=== PATIENT | female | born 1930 | race Caucasian/White ===

== ENCOUNTER 2017-01-29 12:32 | Emergency (ER) | payer MEDICARE, OTHER ==
[2013-10-11 12:21] VITALS: BMI 22.4
[~2017-01-29 12:32] MED LIST: BAYER CHEWABLE81 MG PO; BETIMOL15 ML EACH EYE; CALCIUM 500 + D1 TAB PO; CATAPRES0.1 MG PO; GEMFIBROZIL600 MG PO; GLIPIZIDE10 MG PO; GLUCOTROL 5 MG T5 MG PO; HYDRALAZINE HCL25 MG PO; MAG-OX 400 MG400 MG PO; MIDAMOR5 MG PO; MULTI-DAY VITAM1 TAB PO; PRAVACHOL40 MG PO; SYNTHROID88 MCG PO; VASOTEC20 MG PO; VITAMIN E200 UNI1 PO; XALATAN 0.0052.5 ML EACH EYE; XANAX0.25 MG PO
== END 2017-01-29 13:20 | disposition home or self-care (01) ==
LOC: D.ER 12:32
DX: J01.90 Acute sinusitis, unspecified (principal); J06.9 Acute upper respiratory infection, unspecified; I10 Essential (primary) hypertension; E11.9 Type 2 diabetes mellitus without complications; E07.9 Disorder of thyroid, unspecified

== ENCOUNTER 2017-04-24 12:07 | Emergency (ER) | payer MEDICARE, OTHER ==
[2013-10-11 12:21] VITALS: BMI 22.4
[2017-04-24 12:49] LABS: BASOPHILS 0.4 % (0-2); EOSINOPHILS 1.2 % (0-7); HEMATOCRIT 36.3 % (36.0-48.0); HEMOGLOBIN 12.1 g/dL (12-16); IMMATURE GRANULOCYTES 0.4 % (0-5); LYMPHOCYTES 11.8 % (15-50); MCHC 33.3 g/dL (31.0-37.0); MCV 93.1 fL (80.0-100.0); MEAN PLATELET VOLUME 9.3 fL (7.4-10.4); MONOCYTES 6.9 % (2-11); NEUTROPHILS 79.3 % (40-80); PLATELET COUNT 353 10x3/uL (130-400); RDW 12.4 % (11.5-14.5); WBC 11.2 10x3/uL (4.8-10.8)
[2017-04-24 13:01] LABS: ALBUMIN 4.1 g/dL (3.4-5.0); ANION GAP 17.1 mmol/L (8-16); BILIRUBIN - TOTAL 0.3 mg/dL (0.2-1.3); CALCIUM 9.5 mg/dL (8.5-10.1); CARBON DIOXIDE 23.5 mmol/L (21.0-32.0); CREATININE - SERUM 1.4 mg/dL (0.6-1.3); POTASSIUM - SERUM 5.6 mmol/L (3.5-5.1); PROTEIN - SERUM 7.9 g/dL (6.4-8.2)
[2017-04-24 18:10] LABS: APPEARANCE CLEAR (CLEAR); BILIRUBIN NEGATIVE (NEGATIVE); COLOR YELLOW (YELLOW); GLUCOSE NEGATIVE (NEGATIVE); KETONE NEGATIVE (NEGATIVE); NITRITE NEGATIVE (NEGATIVE); PH 6.5 (5.0-6.0); PROTEIN NEGATIVE (NEGATIVE); UROBILINOGEN NORMAL (NORMAL)
[2017-04-24 18:12] LABS: WHITE CELLS - URINE OCC /hpf (0-5)
[2017-04-24 18:13] LABS: RED CELLS - URINE OCC /hpf (0-5)
== END 2017-04-24 18:59 ==
LOC: D.ER 12:07
PROVIDERS: Emergency Medicine
DX: R42 Dizziness and giddiness (principal)

== ENCOUNTER → 2017-05-01 23:40 | Emergency (ER) | payer MEDICARE, OTHER ==
[2013-10-11 12:21] VITALS: BMI 22.4
[2017-05-02 00:38] LABS: BASOPHILS 0.5 % (0-2); EOSINOPHILS 6.5 % (0-7); HEMATOCRIT 33.4 % (36.0-48.0); HEMOGLOBIN 11.4 g/dL (12-16); IMMATURE GRANULOCYTES 0.5 % (0-5); LYMPHOCYTES 30.5 % (15-50); MCH 31.6 pg (26.0-34.0); MCHC 34.1 g/dL (31.0-37.0); MCV 92.5 fL (80.0-100.0); MEAN PLATELET VOLUME 9.1 fL (7.4-10.4); PLATELET COUNT 300 10x3/uL (130-400); RBC 3.61 10x6/uL (4.00-5.40); RDW 12.4 % (11.5-14.5); WBC 8.6 10x3/uL (4.8-10.8)
[2017-05-02 00:51] LABS: ALBUMIN 3.6 g/dL (3.4-5.0); ANION GAP 12.8 mmol/L (8-16); BILIRUBIN - TOTAL 0.24 mg/dL (0.2-1.3); CALCIUM 8.9 mg/dL (8.5-10.1); CARBON DIOXIDE 23.5 mmol/L (21.0-32.0); CREATININE - SERUM 0.9 mg/dL (0.6-1.3); POTASSIUM - SERUM 4.3 mmol/L (3.5-5.1); PROTEIN - SERUM 6.9 g/dL (6.4-8.2)
== END ==
LOC: D.ER 23:40
PROVIDERS: Physician Assistant Medical
DX: I10 Essential (primary) hypertension (principal); E11.9 Type 2 diabetes mellitus without complications; F17.200 Nicotine dependence, unspecified, uncomplicated

== ENCOUNTER 2018-08-19 16:25 | Inpatient (IN) | payer MEDICARE, BC ==
[~2018-08-19] VITALS: Ht 152.4 cm; Wt 51.3 kg
[2018-08-19 17:17] LABS: BASOPHILS 0.1 % (0-2); EOSINOPHILS 1.2 % (0-7); HEMATOCRIT 33.8 % (36.0-48.0); HEMOGLOBIN 12.2 g/dL (12-16); IMMATURE GRANULOCYTES 0.8 % (0-5); LYMPHOCYTES 19.7 % (15-50); MCH 30.8 pg (26.0-34.0); MCHC 36.1 g/dL (31.0-37.0); MCV 85.4 fL (80.0-100.0); MEAN PLATELET VOLUME 8.5 fL (7.4-10.4); MONOCYTES 7.4 % (2-11); NEUTROPHILS 70.8 % (40-80); PLATELET COUNT 443 10x3/uL (130-400); RBC 3.96 10x6/uL (4.00-5.40); RDW 12.1 % (11.5-14.5); WBC 11.2 10x3/uL (4.8-10.8)
[2018-08-19 17:39] LABS: ALBUMIN 3.7 g/dL (3.4-5.0); ALKALINE PHOSPHATASE 37 U/L (46-116); ALT (SGPT) 23 U/L (10-68); BILIRUBIN - TOTAL 0.36 mg/dL (0.2-1.3); CALCIUM 8.8 mg/dL (8.5-10.1); CARBON DIOXIDE 20.6 mmol/L (21.0-32.0); CKMB 1.8 U/L (0.0-3.6); CREATINE KINASE 87 UL (21-215); CREATININE - SERUM 1.3 mg/dL (0.6-1.3); MAGNESIUM - SERUM 1.9 mg/dL (1.8-2.4); POTASSIUM - SERUM 4.5 mmol/L (3.5-5.1); PROTEIN - SERUM 7.1 g/dL (6.4-8.2); THYROID STIMULATING HORMONE 0.45 uIU/mL (0.36-3.74); TROPONIN-I 0.032 ng/mL (0.000-0.060); UREA NITROGEN 21 mg/dL (7-18); eGFR NON AFRICAN AMERICAN 41 mL/min (90-120)
[2018-08-19 17:40] LABS: CALC OSMOLALITY 234 mosm/kg (275-300); GLUCOSE 79 mg/dL (74-106)
[2018-08-19 17:42] LABS: CHLORIDE - SERUM 82 mmol/L (98-107); SODIUM 115 mmol/L (136-145)
[2018-08-19 18:02] LABS: APPEARANCE CLEAR (CLEAR); BILIRUBIN NEGATIVE (NEGATIVE); COLOR YELLOW (YELLOW); GLUCOSE NEGATIVE (NEGATIVE); KETONE NEGATIVE (NEGATIVE); NITRITE NEGATIVE (NEGATIVE); PROTEIN NEGATIVE (NEGATIVE); UROBILINOGEN NORMAL (NORMAL)
--- NOTE | 2018-08-19 18:45 | NUR ---
PROVIDED PT WITH FOOD TRAY
--- NOTE | 2018-08-19 19:15 | NUR ---
PT SITTING UP ON BED EATING SANDWICH. PT FAMILY AT BEDSIDE.
--- NOTE | 2018-08-19 20:30 | NUR ---
RECIEVED TO ROOM FROM ER, ALERT AND ORIENTIATED, REPORTS GENERALIZED WEAKNESS, IV FLUID OF 3%NS INFUSING AT 50ML/HR, TELEMENTRY PLACED, DENIES PAIN, ORIENTIATED TO ROMM CALL LIGHT IN REACH, SEE ASSESSMENT
[2018-08-19] MEDS ORDERED: PROTONIX20 MG PO (21:07)
[2018-08-19] MEDS ORDERED: LEXAPRO5 MG PO (21:08)
[2018-08-19] MEDS ORDERED: METAMUCIL SUGAR1 PKT PO (21:08)
[2018-08-19] MEDS ORDERED: GABAPENTIN100 MG PO (21:09)
[2018-08-19] MEDS ORDERED: GLIMEPIRIDE4 MG PO (21:10)
--- NOTE | 2018-08-19 21:30 | NUR ---
BS 69, ENCOURAGED TO TRY TO EAT SOMETHING, STATES WILL TRY, EATING PEANUT BUTTER CRACKERS AND MILK, WILL MONITOR SUGAR
[2018-08-19 23:09] VITALS: BP 112/52; BMI 22.1
--- NOTE | 2018-08-19 23:38 | NUR ---
DAUGHTERS HERE, STATES PT IS IN PROCESS OF MOVING TO [place] TO A ASSISTED LIVING FACILITY CLOSE TO DAUGHTER, AND HAS BEEN STRESSED ABOUT LEAVING HER HOME HERE, INSTRUCTED DAUGHTERS NEED TO SPEAK WITH CASEMANAGER TOMORROW CAN HELP WITH QUESTIONS
[2018-08-20 07:34] LABS: BASOPHILS 0.1 % (0-2); EOSINOPHILS 0.4 % (0-7); HEMATOCRIT 33.5 % (36.0-48.0); HEMOGLOBIN 11.8 g/dL (12-16); IMMATURE GRANULOCYTES 0.6 % (0-5); LYMPHOCYTES 5.9 % (15-50); MCH 30.6 pg (26.0-34.0); MCHC 35.2 g/dL (31.0-37.0); MEAN PLATELET VOLUME 8.5 fL (7.4-10.4); MONOCYTES 7.2 % (2-11); NEUTROPHILS 85.8 % (40-80); PLATELET COUNT 376 10x3/uL (130-400); RBC 3.85 10x6/uL (4.00-5.40); WBC 18.1 10x3/uL (4.8-10.8)
[2018-08-20 07:48] LABS: ALBUMIN 3.2 g/dL (3.4-5.0); ANION GAP 14.3 mmol/L (8-16); BILIRUBIN - TOTAL 0.14 mg/dL (0.2-1.3); CALCIUM 8.4 mg/dL (8.5-10.1); CARBON DIOXIDE 20.5 mmol/L (21.0-32.0); CREATININE - SERUM 1.1 mg/dL (0.6-1.3); POTASSIUM - SERUM 4.8 mmol/L (3.5-5.1); PROTEIN - SERUM 6.6 g/dL (6.4-8.2)
[2018-08-20 09:11] VITALS: BP 205/64
[2018-08-20 13:29] VITALS: BP 187/70
--- NOTE | 2018-08-20 13:32 | NUR ---
PT BP IA 187/70 CLONIDINE 0.05 MG GIVEN PER PT REQUEST. WILL RECHECK IN HOUR
[2018-08-20 14:25] VITALS: Ht 152.4 cm; Wt 51.3 kg
--- NOTE | 2018-08-20 14:45 | NUR ---
pt up with bath being given and using bsc. bp 196/80 will recheck again in hour to see if gone down after activity. states no concerns or complaints at this time
--- NOTE | 2018-08-20 15:15 | MORECARE ---
CASE MANAGEMENT DISCHARGE SUMMARY PATIENT: TIKI TEE UNIT: [id number] ADM DATE: 08/19/18 AGE: 87 : 31 SEX: F ROOM/BED: D.2226 AUTHOR: YANI RENDON PHYSICIAN: REFERRING PHYSICIAN: CONCHA JULIO MD DATE OF SERVICE: 08/20/18 Discharge Plan Patient Name: TIKI TEE Facility: [facility]:[place] : 1930 Planned Disposition: Home Anticipated Discharge Date: Discharge Date: Expected LOS: Initial Reviewer: [email or web address] Initial Review Date: 08/20/2018 Generated: 08/20/18 4:14 pm DCPIA - Discharge Planning Initial Assessment Updated by [email or web address]: Naomi Brice on 08/20/18 3:13 pm * Is the patient Alert and Oriented? Yes * How many steps to enter\exit or inside your home? 0/0 * PCP Dr. Jenniffer Arora * Pharmacy [facility] * Preadmission Environment Home Alone * ADLs Partial Dependent * Partial ADLs (Assistance needed) Ambulation * Equipment Cane Walker * List name and contact numbers for known caregivers / representatives who currently or will assist patient after discharge: Snow Ludin - [facility] - [phone] Flory Azam [facility] - [phone] * Verbal permission to speak to the caregivers and representatives has been obtained from the patient. Yes * Community resources currently utilized None * Additional services required to return to the preadmission environment? No * Can the patient safely return to the preadmission environment? Yes * Has this patient been hospitalized within the prior 30 days at any hospital? No Patient Name: TIKI TEE Page [id number] at 1515 All edits/amendments must be made on the electronic document DICTATION DATE: 08/20/181513 ACID CONDITIONER: ELVIA 08/20/181513 RPT#: [id number] DC DATE: STATUS: ADM IN [facility] [address] [place] [address] END OF REPORT
--- NOTE | 2018-08-20 15:35 | MORECARE ---
CASE MANAGEMENT DISCHARGE SUMMARY PATIENT: TIKI TEE UNIT: [id number] ADM DATE: 08/19/18 AGE: 87 : 31 SEX: F ROOM/BED: D.2226 AUTHOR: YANI RNEDON PHYSICIAN: REFERRING PHYSICIAN: CONCHA JULIO MD DATE OF SERVICE: 08/20/18 Discharge Plan Patient Name: TIKI TEE Facility: [facility]:[place] : 1930 Planned Disposition: Home Anticipated Discharge Date: Discharge Date: Expected LOS: Initial Reviewer: [email or web address] Initial Review Date: 08/20/2018 Generated: 08/20/18 4:34 pm Comments DCP- Discharge Planning Updated by [email or web address]: Naomi Brice on 08/20/18 2:[address] Patient Name: TIKI TEE Admission Status: ER Accout number: [id number] Admission Date: 08-19-2018 : 1930 Admission Diagnosis: Attending: CONCHA JULIO Current LOS: 1 Anticipated DC Date: Planned Disposition: Home Primary Insurance: MEDICARE A & B Discharge Planning Comments: CM met with patient to discuss discharge planning, her 2 daughters are in the room and verbal permission received to discuss discharge planning with them present. Her daughter, Flory, states that she and her mother are flying to [facility] to live in one week. She states her mother will be going into an independent living there. She states that she is going to get all of her prescriptions from her primary doctor prior to leaving [place]. I instructed her to make sure she gets her mother established with a PCP there. She states she will. I told her she could do this JEAN MARIE so that there is no interruption in her care. She states they have her walker packed, but she does have a cane. She states if she needs another walker, she will purchase one. No needs identified at this time. CM will continue to follow and assist with discharge planning/needs. [employer] Consultant: Naomi Brice DCPIA - Discharge Planning Initial Assessment Updated by [email or web address]: Naomi Brice on 08/20/18 3:13 pm * Is the patient Alert and Oriented? Yes * How many steps to enter\exit or inside your home? 0/0 * PCP Dr. Jenniffer Arora * Pharmacy [facility] * Preadmission Environment Home Alone * ADLs Partial Dependent * Partial ADLs (Assistance needed) Ambulation * Equipment Cane Walker * List name and contact numbers for known caregivers / representatives who currently or will assist patient after discharge: Snowshanna Noland - DTR - [phone] Flory Luauzair - DTR - [phone] * Verbal permission to speak to the caregivers and representatives has been obtained from the patient. Yes * Community resources currently utilized None * Additional services required to return to the preadmission environment? No * Can the patient safely return to the preadmission environment? Yes * Has this patient been hospitalized within the prior 30 days at any hospital? No Last DP export: 08/20/18 2:15 pm Patient Name: TIKI TEE Page [id number] at 1535 All edits/amendments must be made on the electronic document DICTATION DATE: 08/20/181533 HAT BINDER: ELVIA 08/20/181533 RPT#: [id number] DC DATE: STATUS: ADM IN [facility] [address] [place] [address] END OF REPORT
[2018-08-20 17:30] VITALS: BP 184/66
--- NOTE | 2018-08-20 17:35 | NUR ---
OT NOTE: PT REQUIRED CGA/SBA WITH SIT TO STAND. PT REQUIRED SBA WITH BED MOB TASKS. PT REQUIRED SET UP WITH GROOMING TASK. THANK YOU, LOLA TOMLIN
[2018-08-20 21:13] VITALS: BP 108/57
[2018-08-21] VITALS (7 sets, daily range): BP systolic 118–192; BP diastolic 54–90
--- NOTE | 2018-08-21 01:00 | NUR ---
PT WOKE UP CONFUSED. REORIENTED TO TIME, PLACE, AND SITUATION. ASSISTED TO BSC, GAIT IS UNSTEADY. PT VOIDED CLEAR YELLOW URINE. RETURNED TO BED, CL IN REACH, SIDE RAILS X 2, BED IN LOWEST POSITION, SESAR ALARM IN USE, WILL CONTINUE TO MONITOR.
--- NOTE | 2018-08-21 03:10 | NUR ---
I have reviewed this patient and I concur with the Shift Assessment completed by the Licensed Practical Nurse today this shift.
--- NOTE | 2018-08-21 07:28 | NUR ---
PT IS RESTING IN BED WITH EYES CLOSED. RESPIRATIONS ARE EVEN AND UNLABORED. VSS. CALL FROM EMERGENCY MEDICAL TECHNICIAN BASIC REPORTING SINUS PAM ACTIVITY. PT IS EASILY AROUSED WITH VERBAL STIMULATION. PT DENIES PRESENCE OF PAIN/N/V/DYSPNEA. HEART RATE INCREASED WITH STIMULATION AND PT AROUSING. SEE FLOWSHEET/TELEMETRY REPORT. PT DENIES FURTHER NEEDS. BED IS IN THE LOWEST POSITION. CALL LIGHT AND BEDSIDE TABLE ARE WITHIN REACH. SIDE RAILS X 2. SESAR ALARM IS ON AND WORKING. WILL CONT TO MONITOR.
[2018-08-21 07:51] LABS: BASOPHILS 0.2 % (0-2); HEMATOCRIT 31.7 % (36.0-48.0); HEMOGLOBIN 11.2 g/dL (12-16); IMMATURE GRANULOCYTES 0.6 % (0-5); LYMPHOCYTES 22.6 % (15-50); MCHC 35.3 g/dL (31.0-37.0); MCV 87.8 fL (80.0-100.0); MEAN PLATELET VOLUME 8.6 fL (7.4-10.4); MONOCYTES 9.5 % (2-11); NEUTROPHILS 65.1 % (40-80); PLATELET COUNT 439 10x3/uL (130-400); RBC 3.61 10x6/uL (4.00-5.40); RDW 12.4 % (11.5-14.5)
[2018-08-21 07:59] LABS: WBC 10.8 10x3/uL (4.8-10.8)
[2018-08-21 08:11] LABS: ALBUMIN 3.2 g/dL (3.4-5.0); ANION GAP 13.5 mmol/L (8-16); BILIRUBIN - TOTAL 0.27 mg/dL (0.2-1.3); CALCIUM 8.6 mg/dL (8.5-10.1); CARBON DIOXIDE 21.8 mmol/L (21.0-32.0); CREATININE - SERUM 0.9 mg/dL (0.6-1.3); POTASSIUM - SERUM 4.3 mmol/L (3.5-5.1); PROTEIN - SERUM 6.3 g/dL (6.4-8.2)
--- NOTE | 2018-08-21 15:22 | NUR ---
OT NOTE: PT DOING WELL. MIN ASSIST WITH BED MOB; MIN ASSIST TO PABLITO SOCKS AND SHOES; TRANSFERS WITH MIN ASSIST; SKILLED NURSING CASE MANAGER X 2 FOR AMBULAITON X 175+ FT. BACK TO BED WITH MIN ASSISTS; TOIETING WITH MIN ASSIST. LIZETH MALLORY, OTR/L
--- NOTE | 2018-08-21 17:10 | NUR ---
OT NOTE: PT COMPLETED STANDING WITH CGA. PT COMPLETED BED MOB WITH CGA FOR SUPINE TO SIT. PT COMPLETED BUE AROM AXS. THANK YOU, LOLA TOMLIN
[2018-08-22 01:23] VITALS: BP 124/60
--- NOTE | 2018-08-22 04:39 | NUR ---
BP 192/70, WILL REASSESS AFTER PRN BP MED HAS TIME TO TAKE EFFECT. PT REPORTS RINGING IN EARS AND MILD HEADACHE, WILL MONITOR CLOSELY.
[2018-08-22 04:53] VITALS: BP 191/65
--- NOTE | 2018-08-22 05:30 | NUR ---
BP 111/53.
[2018-08-22 07:43] LABS: BASOPHILS 0.3 % (0-2); EOSINOPHILS 2.9 % (0-7); HEMATOCRIT 32.3 % (36.0-48.0); IMMATURE GRANULOCYTES 0.6 % (0-5); LYMPHOCYTES 24.4 % (15-50); MCH 30.1 pg (26.0-34.0); MCHC 34.1 g/dL (31.0-37.0); MCV 88.5 fL (80.0-100.0); MEAN PLATELET VOLUME 8.8 fL (7.4-10.4); MONOCYTES 10.5 % (2-11); NEUTROPHILS 61.3 % (40-80); PLATELET COUNT 423 10x3/uL (130-400); RBC 3.65 10x6/uL (4.00-5.40); RDW 12.4 % (11.5-14.5); WBC 9.4 10x3/uL (4.8-10.8)
[2018-08-22 07:56] LABS: ALBUMIN 3.2 g/dL (3.4-5.0); ANION GAP 12.5 mmol/L (8-16); BILIRUBIN - TOTAL 0.27 mg/dL (0.2-1.3); CALCIUM 8.5 mg/dL (8.5-10.1); POTASSIUM - SERUM 4.5 mmol/L (3.5-5.1); PROTEIN - SERUM 6.5 g/dL (6.4-8.2)
[2018-08-22 08:49] VITALS: BP 177/60
[2018-08-22] MEDS ORDERED: FLORAJEN3 CAPS460 MG PO (12:51)
[2018-08-22] MEDS ORDERED: THERMOTABS 1 GM1 GM PO (12:51)
[2018-08-22] MEDS ORDERED: HUMULIN R100 U/ML SC (12:52)
[2018-08-22 13:23] VITALS: BP 145/49
--- NOTE | 2018-08-22 14:23 | MORECARE ---
CASE MANAGEMENT DISCHARGE SUMMARY PATIENT: TIKI TEE UNIT: [id number] ADM DATE: 08/19/18 AGE: 87 : 31 SEX: F ROOM/BED: D.2226 AUTHOR: YANI RENDON PHYSICIAN: REFERRING PHYSICIAN: CONCHA JULIO MD DATE OF SERVICE: 08/22/18 Discharge Plan Patient Name: TIKI TEE Facility: [facility]:[place] : 1930 Planned Disposition: Home Anticipated Discharge Date: Discharge Date: Expected LOS: Initial Reviewer: [email or web address] Initial Review Date: 08/20/2018 Generated: 08/22/18 3:23 pm Comments DCP- Discharge Planning Updated by [email or web address]: Naomi Brice on 08/22/18 1:[address] Discharge orders received. She and her daughters agree to discharge today to inpatient rehab. Plan will be to discharge on Monday from rehab to fly to [place] on Monday to live in an assisted living facility. She states that she has requested a WC attendant at the airport and she has a 4 prong cane she will take with her. She declines for me to get her a walker. She states she has one, it is just packed. CM will continue to follow and assist with discharge planning/needs. DCP- Discharge Planning Updated by [email or web address]: Naomi Brice on 08/20/18 2:[address] Patient Name: TIKI TEE Admission Status: ER Accout number: [id number] Admission Date: 08-19-2018 : 1930 Admission Diagnosis: Attending: CONCHA JULIO Current LOS: 1 Anticipated DC Date: Planned Disposition: Home Primary Insurance: MEDICARE A & B Discharge Planning Comments: CM met with patient to discuss discharge planning, her 2 daughters are in the room and verbal permission received to discuss discharge planning with them present. Her daughter, Flory, states that she and her mother are flying to [facility] to live in one week. She states her mother will be going into an independent living there. She states that she is going to get all of her prescriptions from her primary doctor prior to leaving [place]. I instructed her to make sure she gets her mother established with a PCP there. She states she will. I told her she could do this JEAN MARIE so that there is no interruption in her care. She states they have her walker packed, but she does have a cane. She states if she needs another walker, she will purchase one. No needs identified at this time. CM will continue to follow and assist with discharge planning/needs. Wireless Retail Manager: Naomisanjuana Brice DCPIA - Discharge Planning Initial Assessment Updated by [email or web address]: Naomi Yuniel on 08/20/18 3:13 pm * Is the patient Alert and Oriented? Yes * How many steps to enter\exit or inside your home? 0/0 * PCP Dr. Jenniffer Arora * [facility]acy [facility] * Preadmission Environment Home Alone * ADLs Partial Dependent * Partial ADLs (Assistance needed) Ambulation * Equipment Cane Walker * List name and contact numbers for known caregivers / representatives who currently or will assist patient after discharge: Snow Noland - DTR - [phone] Flory Nascimento - DTR - [phone] * Verbal permission to speak to the caregivers and representatives has been obtained from the patient. Yes * Community resources currently utilized None * Additional services required to return to the preadmission environment? No * Can the patient safely return to the preadmission environment? Yes * Has this patient been hospitalized within the prior 30 days at any hospital? No Coverage Notice Reviewer: [id number] - Naomi Yuniel Notice Issued Date-Time: 08/22/2018 14:11 Notice Type: IM Discharge Notice Notice Delivered To: Patient Relationship to Patient: Self Handle Rounder Operator Name: Delivery Method: HAND - Hand Delivered Priscila Days: Prior Verbal Notification: Recipient Understood Notice: Yes Recipient Signature: Yes Med Rec Note Co-signed by Attending: Coverage Notice Comment: IMM explained, signed, given, copy placed in MR Last DP export: 08/20/18 2:34 pm Patient Name: TIKI TEE Page [id number] at 1423 All edits/amendments must be made on the electronic document DICTATION DATE: 08/22/18 142 ROLLS BAKER: ELVIA 08/22/18 142 RPT#: [id number] DC DATE: STATUS: ADM IN [facility] [address] [place] [address] END OF REPORT
[2018-08-22] MEDS ORDERED: ZYVOX600 MG PO (15:54)
--- NOTE | 2018-08-22 17:07 | NUR ---
OT NOTE: PT COMPLETED SUPINE TO SIT WITH SBA. PT COMPLETED STANDING WITH SIDE STEPPING WITH SBA/CGA FOR INCREASED SAFETY. PT COMPLETED PABLITO/DOFF SHOES WITH SBA. PT DOING WELL AND ACTIVELY PARTICIPATING. THANK YOU, LOLA TOMLIN
--- NOTE | 2018-08-22 17:14 | NUR ---
DISCHARGE INSTRUCTIONS COVERED WITH PT. ALL QUESTIONS ANSWERED. PT DENIES FURTHER QUESTIONS/CONCERNS. STILL WAITING FOR BED PLACEMENT IN REHAB. ALL SIGNED DISCHARGE PAPERS PLACED IN PT CHART. WILL CONT TO MONITOR.
--- NOTE | 2018-08-22 18:40 | NUR ---
PT TRANSPORTED FROM ROOM VIA WHEELCHAIR TO REHAB. PT REPORTS THAT SHE HAS ALL PERSONAL BELONGINGS. PT DENIES FURTHER NEEDS/CONCERNS.
--- NOTE | 2018-08-22 19:00 | NUR ---
REPORT GIVEN TO REHAB NURSE. REHAND NURSE DENIES FURTHER QUESTIONS/CONCERNS.
== END 2018-08-22 19:36 | DRG 640 ==
LOC: D.ER 16:25 → D.MS 18:01
PROVIDERS: Emergency Medicine; Family Medicine; ADMIT Internal Medicine Nephrology; ATTEND Internal Medicine Nephrology
DX: E87.1 Hypo-osmolality and hyponatremia (principal); G93.41 Metabolic encephalopathy; G72.81 Critical illness myopathy; R12 Heartburn; E86.0 Dehydration; E11.65 Type 2 diabetes mellitus with hyperglycemia; E03.9 Hypothyroidism, unspecified; I10 Essential (primary) hypertension

== ENCOUNTER 2018-08-22 18:00 | Inpatient (IN) | payer MEDICARE, BC ==
[~2018-08-22] VITALS: Ht 152.4 cm; Wt 51.3 kg
--- NOTE | ~2018-08-22 | RHP ---
PATIENT: TIKI TEE MEDICAL RECORD: [id number] ACCOUNT: [id number] LOCATION:[facility] : [birth year] ADMISSION DATE: 08/22/18 REHABILITATION HISTORY AND PHYSICAL EXAMINATION POST ADMISSION PHYSICIAN EXAMINATION DATE OF ADMISSION: 08/22/2018. ADMITTING DIAGNOSIS: Metabolic encephalopathy. HISTORY OF PRESENT ILLNESS: The patient is an 87-year-old female patient who presented to her PCP with mental status changes. She then was sent over to the ED with complaints of generalized weakness. She reported this weakness, malaise began the day prior to this with progressing worsening of this. She had decreased appetite, nausea, vomiting and unsteady gait. She got a history of diabetes, hyperglycemia, hypoglycemia, hypertension, arthritis. She denied any type of illicit drug use. She was admitted for acute hypo-osmolality and hyponatremia, acute metabolic encephalopathy, nausea, vomiting, diarrhea. She recently had a UTI that was positive for Enterococcus faecalis. She was put on electrolyte protocol. She had her electrolytes watched closely. She was having self-care deficit, she lives alone and these or barriers to her discharge. Prior to the illness, she recently had given up driving and had a decline in mobility using a single point cane with ambulation for ADLs. She is currently ambulating with a rolling walker, but has had an unsteady gait and balance issues. She is min to mod assist with ADLs and require intensive therapy to regain her strength and independence. After rehabilitation, she plans to move close to her daughter in [place], maybe get into an assisted living. COMORBIDITIES: Include arthritis, hypothyroidism, acute hypo-osmolality, hyponatremia, acute nausea, acute vomiting, diarrhea, Enterococcus faecalis, critical illness myopathy, and diabetes. PAST MEDICAL HISTORY: Significant for diabetes, thyroid problems, arthritis. PAST SURGICAL HISTORY: Please see previous charts. ALLERGIES: No known drug allergies. CURRENT MEDICATIONS: Include Floranex 460 daily, Vasotec 20 mg daily. She is on Zyvox 600 mg b.i.d. She is on Timoptic eyedrops, Metamucil daily, Lexapro 5 mg daily, Amaryl 4 mg daily, Protonix 40 mg daily, Lopid 600 mg b.i.d., Synthroid 88 mcg daily, Apresoline 50 mg q.6 hours, Catapres 0.1 mg daily, Midamor 5 mg daily. She is on a low-resistant sliding scale with Humulin. She is on sodium chloride 1 gram t.i.d., Pravachol 40 mg q.h.s., multivitamin daily, Xalatan eye drops, gabapentin 100 mg t.i.d., calcium carbonate 500 mg q.h.s., aspirin 81 mg daily, and Xanax 0.25 mg q.h.s. p.r.n. HABITS: No alcohol or tobacco use. FAMILY HISTORY: Noncontributory. SOCIAL HISTORY: The patient once again hopes to move closer to her daughter who lives in [place]. REVIEW OF SYSTEMS: HISTORY AND PHYSICAL [id number] TIKI TEE GENERAL: Does complain of weakness and fatigue. HEENT: Denies cold, cough, or congestion. CARDIOVASCULAR: Denies any chest pain. PHYSICAL EXAMINATION: VITAL SIGNS: Stable, afebrile. GENERAL: Elderly female in no acute distress, alert upon exam. HEENT: Normocephalic and atraumatic. Mucosa moist. NECK: Supple, with no lymphadenopathy. LUNGS: Clear at this time with no wheezes, rhonchi or rales. HEART: Regular rate and rhythm. No murmurs, rubs or gallops. ABDOMEN: Benign. EXTREMITIES: No clubbing, cyanosis or edema. NEUROLOGIC: She is a little slow to mentate, but mainly intact. ASSESSMENT: This is an 87-year-old female patient admitted to the rehab with a working diagnosis of metabolic encephalopathy. The patient has potential to make improvement. We instituted the following multidisciplinary therapies including, but not limited to physical and occupational therapy, prosthetics and orthotics. Given her complex medical condition and risk for more complications, rehabilitation services cannot be provided at a low level of care such as skilled nurse facility. PLAN: 1. Admit to [facility] rehab for an intensive inpatient therapy to include the following disciplines: A. Physical therapy to improve gait, all transfer skills and bed mobility to a modified independent level. B. Occupational therapy to improve activities of daily living to a modified independent level. C. Case management to assist with discharge planning and placement options. D. Nutrition to assist with nutritional needs. E. Rehabilitation nursing to assist in monitoring the patient's underlying medical conditions and to assist with any type of bowel and bladder management. 2. The patient's current medication and medical care will be continued. 3. The patient will be placed on standard fall precautions. 4. The patient's estimated length of stay is approximately 7-10 days. 5. We will discuss this patient during care team staff meeting this week. I will watch her sodium closely and see again in the a.m. TRANSINT:[id number] Voice Confirmation ID: [id number] DOCUMENT ID: [id number] 08/28/2018 Edited for priti MORA notes whether there has been none or any medical/functional change since admission: - No change since preadmission screen. MORGAN attests patient continues to be appropriate for IRF: - Continues to be appropriate. HISTORY AND PHYSICAL [id number] TIKI TEE,CANDACE FULTON MD CC: [id number] DICTATION DATE: 08/23/18840 PASTE MIXING SUPERVISOR: 08/23/18 0904 DIS IN 08/27/18 [place] [id number] [place] [address]
[~2018-08-22 18:00] MED LIST changes: +FLORAJEN3 CAPS460 MG PO; +GABAPENTIN100 MG PO; +GLIMEPIRIDE4 MG PO; +HUMULIN R100 U/ML SC; +LEXAPRO5 MG PO; +METAMUCIL SUGAR1 PKT PO; +PROTONIX20 MG PO; +THERMOTABS 1 GM1 GM PO; +ZYVOX600 MG PO
[2018-08-22 20:19] VITALS: BP 184/52
[2018-08-22 22:00] VITALS: BP 184/52
[2018-08-23 01:00] VITALS: BP 173/52
[2018-08-23 02:20] VITALS: BP 158/57
[2018-08-23 03:28] VITALS: BP 184/52; BMI 22.1
--- NOTE | 2018-08-23 03:55 | NUR ---
PATIENT EYES CLOSED. RESPIRATIONS 20 & EVEN. BED LOW. BEDSIDE TABLE & ALARM ON. WILL CONTINUE TO MONITOR.
--- NOTE | 2018-08-23 04:38 | NUR ---
I have reviewed this patient and I concur with the Shift Assessment completed by the Licensed Practical Nurse today this shift.
[2018-08-23 10:44] VITALS: Ht 152.4 cm; Wt 51.3 kg
[2018-08-24 06:21] LABS: BASOPHILS 0.3 % (0-2); EOSINOPHILS 3.1 % (0-7); HEMATOCRIT 29.7 % (36.0-48.0); HEMOGLOBIN 10.2 g/dL (12-16); IMMATURE GRANULOCYTES 0.5 % (0-5); LYMPHOCYTES 22.3 % (15-50); MCH 30.5 pg (26.0-34.0); MCHC 34.3 g/dL (31.0-37.0); MCV 88.9 fL (80.0-100.0); MEAN PLATELET VOLUME 8.5 fL (7.4-10.4); MONOCYTES 11.3 % (2-11); NEUTROPHILS 62.5 % (40-80); RBC 3.34 10x6/uL (4.00-5.40); WBC 8.7 10x3/uL (4.8-10.8)
[2018-08-24 06:40] LABS: PLATELET COUNT 330 10x3/uL (130-400)
[2018-08-24 06:48] LABS: ANION GAP 13.4 mmol/L (8-16); CALCIUM 8.3 mg/dL (8.5-10.1); CARBON DIOXIDE 22.9 mmol/L (21.0-32.0); CREATININE - SERUM 1.1 mg/dL (0.6-1.3); POTASSIUM - SERUM 4.3 mmol/L (3.5-5.1)
--- NOTE | 2018-08-24 06:48 | NUR ---
PT IN BED LOWEST POSITION, EYES CLOSED, AROUSES EASILY, RESPIRATIONS EVEN AND UNLABORED, NO IMMEDIATE NEEDS NOTED, FLUIDS AND CALL LIGHT WITHIN REACH
[2018-08-24 08:00] VITALS: BP 141/49
--- NOTE | 2018-08-24 14:10 | NUR ---
PATIENT ADMITTED TO REHAB FROM ACUTE FLOOR. HER PCP IS DR. JOSE A PALM. DME AT HOME IS CANE AND A WALKER. AT DISCHARGE PATIENT IS MOVING TO [place] WITH HER DAUGHTER. WILL CONTINUE TO FOLLOW WITH PATIENT AND WILL ASSIST WITH DISCHARGE NEEDS.
--- NOTE | 2018-08-24 14:51 | NUR ---
RESTING QUIETLY IN BED. DTR VISITED WITH RETURNED TELEPHONE EQUIPMENT APPRAISER AND NURSE IN PREPARATION FOR DC NEXT WEEK AND PT'S MEDICAL NEEDS. PT DENIES NEEDS. CALL LIGHT IN REACH
--- NOTE | 2018-08-24 17:58 | NUR ---
PT B/P COMING DOWN. V/S TAKEN APPX [id number]--191/64,73,19. PRN MEDS GIVEN FOR HYPERTENSION. DTR IN ROOM WITH PT.
--- NOTE | 2018-08-24 20:00 | NUR ---
PATIENT RECEIVED SITTING UP IN BED. FAMILY AT BEDSIDE. ASSESSMENT & VITAL SIGNS DONE. NO C/O PAIN OR DISTRESS. BED LOW. BEDSIDE TABLE & ASSESSMENT DONE. CALL LIGHT WITHIN REACH. WILL CONTINUE TO MONITOR.
[2018-08-24 22:01] VITALS: BP 161/72
--- NOTE | 2018-08-24 23:24 | NUR ---
RESTING IN BED WITH RESPIRATIONS UNLABORED. NO DISTRESS NOTED. CALL LIGHT IN REACH.
--- NOTE | 2018-08-25 02:26 | NUR ---
PATIENT EYES CLOSED. RESPIRATIONS 18 & EVEN. ALARM ON. CALL LIGHT & BEDSIDE TABLE WITHIN REACH. WILL CONTINUE TO MONITOR.
[2018-08-25 08:00] VITALS: BP 143/43
--- NOTE | 2018-08-25 08:00 | NUR ---
SHIFT ASSMT COMPLETED.CL IN REACH.BREAKFAST GIVEN.
--- NOTE | 2018-08-25 12:00 | NUR ---
SITTING UP IN CHAIR EATING.CL IN REACH.
--- NOTE | 2018-08-25 16:00 | NUR ---
RESTING QUIETLY.CL IN REACH.
[2018-08-25 16:30] VITALS: BP 172/49
--- NOTE | 2018-08-25 19:40 | NUR ---
PT RESTING QUIETLY. EYES CLOSED. CL IN REACH. NO DISTRESS NOTED. WCTM. RESP EVEN AND UNLABORED.
[2018-08-25 20:13] VITALS: BP 161/55
[2018-08-25 23:46] VITALS: BP 137/40
--- NOTE | 2018-08-25 23:46 | NUR ---
ASSISTED TO AND FROM BATHROOM. DENIES FURTHER NEEDS. VITALS TAKEN. BP 137/40. SNACK GIVEN DUE TO BLOOD SUGAR DROPPING AT TIMES. WCTM CL IN REACH
--- NOTE | 2018-08-26 00:41 | NUR ---
I have reviewed this patient and I concur with the Shift Assessment completed by the Licensed Practical Nurse today this shift.
--- NOTE | 2018-08-26 00:50 | NUR ---
PATIENT RESTING QUIETLY WITH EYES CLOSED LAYING ON LEFT SIDE. RESPIRATIONS EVEN. NO S/S OF DISTRESS. SR UP X 2. BED IN LOWEST POSITION. CALL LIGHT IN REACH.
--- NOTE | 2018-08-26 03:32 | NUR ---
pt resting quietly. cl in reach. no distress noted. eyes closed. wctm
[2018-08-26 04:33] VITALS: BP 147/59
[2018-08-26 08:00] VITALS: BP 136/40
--- NOTE | 2018-08-26 08:00 | NUR ---
SHIFT ASSMT COMPLETED.BREAKFAST GIVEN.
[2018-08-26 12:00] VITALS: BP 147/41
--- NOTE | 2018-08-26 12:00 | NUR ---
SITTING UP EATING LUNCH.
[2018-08-26 16:20] VITALS: BP 186/55
--- NOTE | 2018-08-26 19:52 | NUR ---
PATIENT IS RESTING IN HER BED. SHE DENIES ANY NEEDS.
[2018-08-26 21:32] VITALS: BP 120/54
--- NOTE | 2018-08-27 | NUR ---
PATIENT IS SLEEPING.
--- NOTE | 2018-08-27 04:05 | NUR ---
PATIENT IS RESTING WITH EYES CLOSED. NO SIGNS OF DISTRESS.
[2018-08-27 06:57] LABS: BASOPHILS 0.2 % (0-2); EOSINOPHILS 3.3 % (0-7); HEMATOCRIT 29.7 % (36.0-48.0); HEMOGLOBIN 10.1 g/dL (12-16); IMMATURE GRANULOCYTES 0.2 % (0-5); MCH 30.6 pg (26.0-34.0); MEAN PLATELET VOLUME 8.7 fL (7.4-10.4); MONOCYTES 9.2 % (2-11); NEUTROPHILS 66.1 % (40-80); PLATELET COUNT 335 10x3/uL (130-400); RDW 12.7 % (11.5-14.5)
[2018-08-27 07:10] LABS: ANION GAP 10.7 mmol/L (8-16); CALCIUM 8.4 mg/dL (8.5-10.1); CARBON DIOXIDE 28.1 mmol/L (21.0-32.0); CREATININE - SERUM 1.1 mg/dL (0.6-1.3); POTASSIUM - SERUM 4.8 mmol/L (3.5-5.1)
[2018-08-27 08:00] VITALS: BP 198/85
--- NOTE | 2018-08-27 10:04 | NUR ---
PATIENT DISCHARGING HOME WITH HER DAUGHTER TODAY AND FLYING TO [place] IN AM. DAUGHTER WILL ESTABLISH PATIENT WITH A PCP . PATIENT CHOICE FORM AND IMFM FORMS SIGNED, COPY GIVEN TO PATIENT AND FILED IN CHART. DISCHARGE INSTRUCTIONS REVIEWED WITH PATIENT AND DAUGHTER.
--- NOTE | 2018-08-27 13:29 | NUR ---
EXTENSIVE TEACHING WITH DTR AND PT REGUARDING MEDS, GLUCOSE MONITORING, INSULIN ADMINISTRATION. DEMONSTRATION OF HOW TO DRAW UP INSULIN AND GIVE INJECTION, HOW MUCH INSULIN TO GIVE, PLACES ON BODY TO GIVE INJECTION. WENT OVER EACH AND EVERY MEDICATION ON APR WITH PT AND DTR. MEDS CALLED IN TO PHARMACY. PAPERWORK SIGNED.
== END 2018-08-27 13:59 | disposition home or self-care (01) | DRG 71 ==
LOC: D.REHAB 18:00
PROVIDERS: ADMIT Emergency Medicine; ATTEND Emergency Medicine
DX: G93.41 Metabolic encephalopathy (principal); G72.81 Critical illness myopathy; E87.1 Hypo-osmolality and hyponatremia; N39.0 Urinary tract infection, site not specified; E03.9 Hypothyroidism, unspecified; R19.7 Diarrhea, unspecified; R11.2 Nausea with vomiting, unspecified; M19.90 Unspecified osteoarthritis, unspecified site; I10 Essential (primary) hypertension; E86.0 Dehydration; B95.2 Enterococcus as the cause of diseases classified elsewhere; B96.89 Other specified bacterial agents as the cause of diseases classified elsewhere; E11.65 Type 2 diabetes mellitus with hyperglycemia